=== PATIENT | male | born 1970 | race Caucasian/White ===

== ENCOUNTER 2020-09-08 14:02 | Emergency (ER) | payer OTHER, SELFPAY ==
[2020-09-08 14:05] VITALS: BP 127/68; PULSE 83; RESP 15; TEMP 36.6; O2SAT 96; BMI 38.3
--- NOTE | 2020-09-08 14:09 | RAD_ITS ---
STUDY: X-RAY - RIGHT KNEE REASON FOR EXAM: Male, 49 years old. Injury. Lost his footing while standing in a truck. TECHNIQUE: 2 view(s) of the knee. COMPARISON: None. FINDINGS: Normal visualized distal femur. Normal visualized proximal tibia and fibula. Normal proximal tibiofibular articulation. There is no acute fracture, dislocation or destructive osseous pathology. As small osteophyte at the insertion of the quadriceps tendon on the patella. Normal medial femorotibial compartment. Normal lateral femorotibial compartment. Normal patellofemoral articulation. There is no demonstrated joint effusion. The soft tissue structures are unremarkable. RAD/Knee 3 Views IMPRESSION: No acute fracture or dislocation. Electronically Signed: James Hines DO at 17:47 EDT Tel [phone], Service support ,
--- NOTE | 2020-09-08 16:48 | EDS_ITS ---
HPI History of Present Illness Chief Complaint: Lower Extremity Injury Detail of Chief Complaint: Injury to right knee Informant: patient Narrative Narrative: Patient presents to the emergency department with an injury to the right knee that occurred while at work. 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 Patient heard a pop. Patient unable to bear weight afterwards. Having a hard time moving the knee. There was no fall or direct trauma to the knee. [facility] Medical History (Updated 09/08/20 @ 18:[address] Justin Elias, ) Hyperlipidemia Home Medications atorvastatin 80 mg PO DAILY 09/08/20 [History Last Taken Unknown] hydrocodone-acetaminophen 1 tab PO Q4H PRN PRN 3 Days #20 tablet 09/08/20 [Rx Last Taken Unknown] lisinopril-hydrochlorothiazide 1 tab PO DAILY 09/08/20 [History Last Taken Unknown] quetiapine 50 mg PO DAILY 09/08/20 [History Last Taken Unknown] venlafaxine 75 mg PO DAILY 09/08/20 [History Last Taken Unknown] Allergy/AdvReac Type Severity Reaction Status Date / Time No Known Allergies Allergy Verified 09/08/20 14:04 Social History Smoking Status: Never smoker [facility] ED Constitutional Constitutional ED: Reports systems reviewed and no addt'l complaints, except as documented; Denies body ache(s), change in weight or chills Eyes Eyes: Denies acute decrease in peripheral vision, change in vision, double vision or loss of vision ENT ENT ED: Reports none; Denies ear pain, lip swelling, loss taste/smell, neck pain, otalgia or sore throat Cardiovascular Cardiovascular: Reports none; Denies abdominal pain, chest pain with activity, leg edema, lightheadedness, palpitations, rapid heart rate or syncope Respiratory/Chest Respiratory/Chest: Reports none; Denies change in mental status, dry cough, dyspnea, hemoptysis, shortness of breath at rest or shortness of breath with exertion Gastrointestinal Gastrointestinal: Reports none; Denies abdominal pain, change in stool character, diarrhea, hematemesis, hematochezia, melena, rectal bleeding or vomiting Genitourinary Genitourinary ED: Reports none; Denies abdominal discomfort, anuria, dysuria, genital pain or polyuria Musculoskeletal Musculoskeletal: Reports none and other Details: Right knee pain ; Denies arthralgias, back pain, difficulty walking, extremity pain, muscle weakness or myalgias Integumentary Reports none; Denies abscess or rash Neurologic Neurologic: Reports none; Denies abnormal gait, confusion, focal weakness, frequent falls, headache(s), loss of vision, numbness, paresthesias, radicular pain, vertigo or weakness Psychiatric Psychiatric: Reports systems reviewed and no addt'l complaints, except as do cumented and none; Denies behavioral changes, confusion, difficulty concentrating, hallucinations, suicidal ideation, tactile hallucinations or visual hallucinations Endocrine Endocrinology: Denies none, cold intolerance, excessive sweating, fatigue or heat intolerance Hematologic/Lymphatic Hematologic/Lymphatic: Reports none; Denies anemia, easy bleeding or easy bruising Allergic/Immunologic Allergic/Immunologic ED: Denies as per HPI, none, lip swelling, mouth swelling, throat swelling, tongue swelling or hives EXAM Physical Exam Const Vital Signs: 09/08/20 14:05 Temperature 97.8 F Temperature Source Temporal Pulse Rate 83 Respiratory Rate 15 Blood Pressure 127/68 H Blood Pressure Mean 87 Pulse Ox 96 Oxygen Delivery Method Room Air Positive well nourished and well developed General Appearance ED: well developed and NAD HEENT Reports TM's clear and moist mucous membranes normocephalic and atraumatic; Negative for trauma or tenderness Tympanic Membrane ED: Yes TM's clear Eyes PERRL and EOMs intact bilaterally General Eye ED: Negative for pale conjunctiva or scleral icterus Neck no lymphadenopathy, supple and no JVD General: Negative for tenderness Chest Wall inspection of chest normal and palpation of chest normal Chest: Negative for tenderness Resp normal respiratory effort and clear to auscultation bilaterally Effort and Inspection: Negative for respiratory distress or pain with movement Auscultation: Negative for rhonchi, wheezes or diminished lung sounds Cardio regular rate, regular rhythm, S1 normal heart sound, S2 normal heart sound and no murmurs Peripheral Pulses: pulses 2+ throughout GI normal to inspection, nondistended, normoactive bowel sounds, soft to palpation, non-tender, non-distended and no masses Back/Spine no CVA tenderness and no thoracic nor lumbar tenderness Extremity Extremity Narrative: Patient has limited range of motion to the right knee. He has diffuse tenderness to palpation over the lateral joint line and posteriorly. He does not tolerate ligamentous testing. Neurovascular intact distally. General Extremety ED: Negative for edema General Extremity: Negative for edema Neuro oriented x3, CN's II-XII intact bilaterally, no sensory deficits noted and gait normal Sensorium / Orientation: awake, alert, oriented to person, oriented to place and oriented to time Motor Exam: strength 5/5 throughout and strength abnormal Psych mental status grossly normal Skin no rashes or lesions noted and no wounds MDM MDM MDM Narrative Medical decision making narrative: Patient was given crutches and a knee immobilizer. He did decide to file it under Workmen's Comp. He will be given work restrictions. Patient will be referred to orthopedics for follow-up in 3 to 5 days. Radiography Diagnostic Testing: Radiology Impression Knee X-Ray 09/08/20 14:09 IMPRESSION: No acute fracture or dislocation. Electronically Signed: James Hines DO at 17:47 EDT Tel [phone], Service support , Knee obtained interpreted by myself as no acute fractures or dislocations. Radiology in agreement. Discharge Plan Triage Chief Complaint: Lower Extremity Injury ED Provider: Justin Elias Dx/Rx/DC Orders Clinical Impression: Sprain of knee Instructions: ED Meniscal Injury Knee Poss, ED Knee Sprain Prescriptions: New hydrocodone-acetaminophen [hydrocodone-acetaminophen] 1 TABLET tablet 1 tab PO Q4H PRN PRN (Reason: Pain) 3 Days Qty: 20 RF: 0 No Action atorvastatin 80 mg tablet 80 mg PO DAILY RF: 0 venlafaxine 75 mg capsule,extended release 24hr 75 mg PO DAILY RF: 0 lisinopril-hydrochlorothiazide 20-12.5 mg tablet 1 tab PO DAILY RF: 0 quetiapine 50 mg tablet extended release 24 hr 50 mg PO DAILY RF: 0 Primary Care Provider: Martha Manning Referrals: Martha Manning DO [Primary Care Provider] - Augie Sultana DO [STAFF PHYSICIAN] - 3-5 Days Disposition Disposition: Home, Self Care
[2020-09-08] MEDS: HYDROcodone Bitartrate/Apap 5/325 Tablet PO (17:31)
[2020-09-08 19:03] VITALS: BP 120/82; PULSE 78; RESP 15; O2SAT 99
== END 2020-09-08 19:04 | disposition home or self-care (01) ==
PROVIDERS: Emergency Provider Emergency Medicine
DX: S83.91XA Sprain of unspecified site of right knee, initial encounter (principal); E78.5 Hyperlipidemia, unspecified; X50.1XXA Overexertion from prolonged static or awkward postures, initial encounter; Z79.899 Other long term (current) drug therapy
CPT/HCPCS: 73562; 99285

== ENCOUNTER 2024-03-07 15:15 | Emergency (ER) | payer OTHER, SELFPAY ==
[2024-03-07 15:16] VITALS: BP 138/86; PULSE 78; RESP 18; TEMP 36.8; O2SAT 98; BMI 39.7
--- NOTE | 2024-03-07 15:41 | CT_ITS ---
STUDY: CT BRAIN WITHOUT CONTRAST REASON FOR EXAM: Male, 53 years old. trauma RADIATION DOSAGE (If Supplied By Facility): CTDIvol = ( 44.99 ) mGy, DLP = ( 863.60 ) mGycm TECHNIQUE: Transaxial CT imaging of the brain was performed without administration of intravenous contrast material. Individualized dose optimization techniques were used for this CT. COMPARISON: No relevant priors. FINDINGS: Normal soft tissue structures. Normal calvarium. Normal size ventricles and extra-axial spaces for the patient''s age. Normal white matter tracts of the cerebral hemispheres. Normal basal ganglia and thalami. Normal brainstem. Normal cerebellum. There is no intracranial hemorrhage. There are no findings of an acute ischemic infarction. Normal visualized paranasal sinuses. CT/Brain/Head without Contrast IMPRESSION: Normal unenhanced CT scan of the brain. Electronically Signed: Lionel Snow MD at 16:30 EST ,
[2024-03-07] MEDS: Lidocaine 1% (20 ml mdv) 20 ML Vial INFILT (15:43)
--- NOTE | 2024-03-07 15:56 | EX.ED.GENINJ ---
HPI History of Present Illness Chief Complaint: Head Injury Informant: patient Narrative Narrative: 53-year-old male presenting to the emergency room with head injury. Patient was at work today when he slipped on wet concrete striking the back of his head. No loss of consciousness but states that he was very dazed and had difficult time getting up. He notes his tetanus is up-to-date. No nausea vomiting. He states he is not on a blood thinner. Tetanus Immunization: <5 years PFSH PFS Medical History Hyperlipidemia Home Medications ?Medication ?Instructions ?Recorded ?Last Taken ?Type atorvastatin 80 mg tablet 80 mg PO DAILY 09/08/20 Unknown History hydrocodone-acetaminophen 5-325mg 1 tab PO Q4H PRN PRN Pain 3 days 09/08/20 Unknown Rx 5mg-325mg #20 TABLETS lisinopril 20 1 tab PO DAILY 09/08/20 Unknown History mg-hydrochlorothiazide 12.5 mg tablet quetiapine 50 mg tablet,extended 50 mg PO DAILY 09/08/20 Unknown History release 24 hr venlafaxine 75 mg capsule,extended 75 mg PO DAILY 09/08/20 Unknown History release 24 hr Allergy/AdvReac Type Severity Reaction Status Date / Time coconut Allergy Mild Hives Verified 03/07/24 15:15 Social History Smoking Status: Never smoker ROS [facility] ED Constitutional Constitutional ED: Denies chills, fever(s) or weight loss Eyes Eyes: Denies change in vision or diplopia ENT ENT ED: Denies ear pain, rhinorrhea or sore throat Cardiovascular Cardiovascular: Denies chest pain, orthopnea, palpitations or racing heartbeat Respiratory/Chest Respiratory/Chest: Denies cough, dyspnea or orthopnea Gastrointestinal Gastrointestinal: Denies abdominal pain, diarrhea, nausea or vomiting Genitourinary Genitourinary ED: Denies dysuria, hematuria or urinary frequency Musculoskeletal Musculoskeletal: Denies arthralgias, back pain or myalgias Integumentary Reports Abrasions and other Details: Scalp laceration ; Denies abscess or rash Neurologic Neurologic: Reports headache(s); Denies weakness Psychiatric Psychiatric: Denies anxiety, depression, suicidal ideation or suicidal thoughts Endocrine Endocrinology: Denies polydipsia, polyphagia or polyuria Allergic/Immunologic Allergic/Immunologic ED: Denies mouth swelling, tongue swelling or urticaria EXAM Physical Exam Const Vital Signs: 03/07/24 15:16 03/07/24 15:34 Temperature 98.2 F Temperature Source Oral Pulse Rate 78 Respiratory Rate 18 Respiratory Effort Normal Respiratory Depth Normal Respiratory Pattern Normal Blood Pressure 138/86 H Blood Pressure Mean 103 Pulse Ox 98 Oxygen Delivery Method Room Air Room Air Positive well nourished and well developed General Appearance ED: well developed and NAD HEENT Reports normocephalic and moist mucous membranes HEENT Narrative: Left occipital region is a 3 cm irregular/linear laceration that is gaping with mild venous bleeding. Just cephalad to this is a superficial area of skin abrasion measuring back to half centimeter by 2.5 cm. There is associated hematoma. No palpable bony depression. Eyes PERRL and EOMs intact bilaterally Neck no lymphadenopathy, supple and no JVD Resp normal respiratory effort and clear to auscultation bilaterally Cardio regular rate, regular rhythm and no murmurs GI normal to inspection, nondistended, normoactive bowel sounds and non-tender Palpation: soft Back/Spine no CVA tenderness and normal ROM Extremity normal to inspection General Extremety ED: Negative for edema General Extremity: Negative for edema Neuro oriented x3 and CN's II-XII intact bilaterally Sensorium / Orientation: alert Motor Exam: strength 5/5 throughout Psych mental status grossly normal Mood & Affect: Negative for depressed or tearful Skin no rashes or lesions noted and no wounds MDM MDM MDM Narrative Medical decision making narrative: Differential diagnosis includes hematoma laceration abrasion skull fracture intracranial hemorrhage concussion CT the brain was obtained which does not demonstrate any obvious skull fracture intracranial hemorrhage/hematoma. The wound was locally anesthetized using 1% lidocaine washed with Shur-Clens and explored. He was closed using a total of 6 simple interrupted 4-0 Ethilon sutures. Wound care discussed with the patient stitches to be removed in 7 days return if worsening or concerns History & Record Review Discussion w/independent historian: Patient Radiography Diagnostic Testing: Clinical Impression(s) from Imaging Studies Brain CT 03/07/24 15:41 IMPRESSION: Normal unenhanced CT scan of the brain. Electronically Signed: Lionel Snow MD at 16:30 EST , Discharge Plan Triage Chief Complaint: Head Injury ED Provider: Alfredito Tellez Dx/Rx/DC Orders Clinical Impression: Laceration of scalp, Fall, Concussion Instructions: ED Concussion, ED Laceration, All Closures Prescriptions: No Action atorvastatin 80 mg tablet 80 mg PO DAILY Patient Comments: TAKE ONE TABLET BY MOUTH EVERY DAY venlafaxine 75 mg capsule,extended release 24hr 75 mg PO DAILY Patient Comments: TAKE ONE CAPSULE BY MOUTH EVERY DAY lisinopril-hydrochlorothiazide 20-12.5 mg tablet 1 tab PO DAILY Patient Comments: TAKE ONE TABLET BY MOUTH EVERY DAY quetiapine 50 mg tablet extended release 24 hr 50 mg PO DAILY Patient Comments: TAKE ONE TABLET BY MOUTH EVERY NIGHT AT BEDTIME hydrocodone-acetaminophen [hydrocodone-acetaminophen] 1 TABLET tablet 1 tab PO Q4H PRN PRN (Reason: Pain) 3 Days Qty: 20 0RF Primary Care Provider: Martha Manning Referrals: Martha Manning, [Primary Care Provider] - [facility] [Non-Staff] - 7 Days for suture removal Print Language: Citizen Of [place]
[2024-03-07 17:15] VITALS: BP 132/74; PULSE 80; RESP 16; O2SAT 99
[2024-03-07 17:29] VITALS: BP 124/78; PULSE 64; RESP 18; TEMP 37.1; O2SAT 99
== END 2024-03-07 17:30 | disposition home or self-care (01) ==
LOC: ED 16:25
PROVIDERS: Emergency Provider Emergency Medicine; Visit Provider Emergency Medicine
DX: S01.01XA Laceration without foreign body of scalp, initial encounter (principal); S06.0X0A Concussion without loss of consciousness, initial encounter; X58.XXXA Exposure to other specified factors, initial encounter
CPT/HCPCS: 12002; 70450; 99283

== ENCOUNTER 2024-03-10 16:56 | Observation (INO) | payer OTHER, SELFPAY ==
[2024-03-10 16:57] VITALS: BP 203/184; PULSE 103; RESP 20; TEMP 37.8; O2SAT 99; BMI 40.2
--- NOTE | 2024-03-10 17:02 | ED.RN ---
This RN notified Dr. Aleman of concern for patient. She took chart and is seeing patient.
[2024-03-10 17:04] VITALS: BP 147/75; PULSE 104; RESP 24; TEMP 39.6; O2SAT 98
--- NOTE | 2024-03-10 17:12 | RAD_ITS ---
INDICATION: fever, weakness EXAMINATION/TECHNIQUE: X-RAY - XR Chest 1 View COMPARISON: None. FINDINGS: Patchy right upper lobe opacities. The heart is mildly enlarged. No pleural effusion or pneumothorax. No acute osseous abnormalities. RAD/Chest 1 View (Portable) IMPRESSION: Rightward rotation of patient limits evaluation. Despite limitations: Patchy right upper lobe opacities concerning for pneumonia. Electronically Signed: Tank Simms MD at 18:09 EST ,
--- NOTE | 2024-03-10 17:12 | EKG12_ITS ---
Test Reason : Blood Pressure : */* mmHG Vent. Rate : 103 BPM Atrial Rate : 103 BPM P-R Int : 166 ms QRS Dur : 100 ms QT Int : 326 ms P-R-T Axes : 18 -11 10 degrees QTcB Int : 427 ms Sinus tachycardia Minimal voltage criteria for LVH, may be normal variant ( R in aVL ) Possible Inferior infarct , age undetermined Abnormal ECG Confirmed by ENDER NEVAREZ, NAMRATA ([id number]), visual effects editor DAVID GALAN ([id number]) on 03/13/2024 2:25:24 PM Referred By: Confirmed By: NAMRATA HANDLEY MD
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
[2024-03-10 17:29] LABS: Absolute Lymphocyte Count 0.84 X10^3/uL (0.83-4.51); Absolute Neutrophil Count 7.1 X10^3/uL (2.0-7.7); Basophil# 0.03 X10^3/uL; Basophil% 0.3 % (0-1); Eosinophil# 0.02 X10^3/uL; Eosinophils% 0.2 % (0-5); Hematocrit 38.9 % (40-54); Hemoglobin 13.4 g/dL (13.0-16.5); Lymphocyte # 0.84 X10^3/ul (0.83-4.51); Lymphocyte % 9.6 % (19-41); Mean Corp Hgb Conc 34.4 g/dL (32-36); Mean Corpuscular Hgb 28.7 pg (27.0-32.0); Mean Corpuscular Volume 83.3 fL (80-94); Mean Platelet Vol. 9.3 fl (6.2-12.0); Monocyte# 0.67 X10^3/uL; Monocyte% 7.7 % (0-10); NRBC Flagged by Analyzer 0 % (0-5); Neutrophil # 7.14 X10^3/uL (2.7-7.7); Neutrophil % 81.7 % (47-70); Platelet Count 271 K/mm3 (150-450); RBC Distribution Width CV 11.9 % (11.6-14.6); Red Blood Count 4.67 M/mm3 (4.6-6.2); White Blood Count 8.7 K/mm3 (4.4-11.0)
--- NOTE | 2024-03-10 17:32 | CT_ITS ---
EXAMINATION : Head CT w/out contrast HISTORY : headache, recent trauma COMPARISON : None. TECHNIQUE : Multiple contiguous axial images were obtained from the skull base to the vertex without intravenous contrast. A radiation dose optimization technique was used for this scan. FINDINGS : The ventricles and sulci are normal in size. There is no evidence for acute intracranial hemorrhage, mass effect, or midline shift. There is no extra-axial fluid collection. There is normal frederick-white differentiation, without CT evidence of acute ischemia or infarct. The skull base and calvarium are unremarkable. The orbits are unremarkable. The paranasal sinuses are clear. The mastoid air cells are well-aerated. The soft tissues are unremarkable. CT/Brain/Head without Contrast IMPRESSION: No acute intracranial abnormality. Electronically Signed: Tank Simms MD at 18:03 EST ,
[2024-03-10 17:35] LABS: International Normalized Ratio 1.1; Prothrombin Time (Protime)PT. 13.8 SECONDS (11.7-14.9)
[2024-03-10 17:36] LABS: Partial Thromboplast Time 30.3 Seconds (24.1-36.2)
[2024-03-10] MEDS: 0.9% Normal Saline (1000mL) 1,000 ML 999 ML IV (17:40)
[2024-03-10] MEDS: Acetaminophen 325 MG Tablet 650 MG PO (17:40)
[2024-03-10 17:46] LABS: ALB/GLOB Ratio 0.8 RATIO (0.9-2.4); AST(SGOT) 23 U/L (15-37); Alanine Aminotransfer ALT/SGPT 35 U/L (16-61); Albumin, Serum 3.4 g/dL (3.2-5.0); Alkaline Phosphatase 120 U/L (45-117); Anion Gap 8 (5-15); BUN 12 mg/dL (7-18); BUN/Creat Ratio 11.3 RATIO (10-20); CPK Total, Creatine Kinase 160 U/L (39-308); Calcium,Total 8.8 mg/dL (8.5-10.1); Chloride 94 mmol/L (98-107); Creatinine, Serum 1.06 mg/dL (0.70-1.30); EST Glomerular Filtration Rate 77 mL/min (>60); Est Glom Filt Rate - Afr Amer 93 mL/min (>60); Globulin 4.3 g/dL (2.2-4.2); Glucose 155 mg/dL (74-106); Potassium 3.2 mmol/L (3.5-5.1); Protein, Total 7.7 g/dL (6.4-8.2); Sodium Level 130 mmol/L (136-145)
[2024-03-10 18:00] VITALS: BP 110/75; PULSE 99; RESP 28
[2024-03-10 18:07] LABS: Lactic Acid 1.6 mmol/L (0.4-1.9)
[2024-03-10] MEDS: Ceftriaxone 1 GM/50 ML BAG IV (18:54)
[2024-03-10] MEDS: Azithromycin 500 MG in 0.9% Normal Saline (250mL Bag) 250 ML 250 MG IV (18:55)
--- NOTE | 2024-03-10 18:59 | HP.PCM.HOS_ITS ---
HPI - General General Date of Service: 03/10/24 Chief Complaint: Febrile HPI Narrative GARRY TOMLIN, is a 53-year-old male history of hypertension, depression, diabetes, hyperlipidemia presented [facility] ED 03/10/2024 due to increasing weakness, confusion, fever. He had recent fall with head injury and scalp lac 3 days ago and the fall was attributed to him slipping on water, he did have a loss of consciousness at the time CT head with no acute process. Over the past 2 days he has had increased generalized weakness and fatigue and yesterday had a hard time driving which was unusual for him. Additionally has had poor p.o. intake since that time. Mild headache and a little bit of neck pain. In the ED patient febrile with temp of 103.2 and initially was significantly hypertensive but repeat blood pressure improved to 147/75 with heart rate of 104. Lab workup fairly unremarkable aside from a sodium of 130 and potassium of 3.2. CT head in ED with no acute process. Chest x-ray concerning for right upper lobe pneumonia. Given extent of patient's fever with his confusion and weakness hospitalist contacted for admission. Patient evaluated with family member at bedside. Patient reports that since the day of his fall he has noticed some intermittent sweats and chills but has not measured temperature, also has felt confused and weak. Has had some intermittent nausea shortly after the episode with the loss of consciousness, a little bit of dry heaves today as well that is resolved. Does not feel short of breath, does have occasional cough, no chest pain or abdominal pain, has a little bit of a headache that has been unchanged since his fall and does have some neck pain but more so on the left side with palpation and this is not worsened over the past several days either [facility] Medical History Hyperlipidemia Home Medications ?Medication ?Instructions ?Recorded ?Last Taken ?Type atorvastatin 80 mg tablet 80 mg PO DAILY 09/08/20 03/10/24 History lisinopril 20 1 tab PO DAILY 09/08/20 03/10/24 History mg-hydrochlorothiazide 12.5 mg tablet quetiapine 50 mg tablet,extended 50 mg PO DAILY 09/08/20 03/09/24 History release 24 hr venlafaxine 75 mg capsule,extended 75 mg PO DAILY 09/08/20 03/09/24 History release 24 hr coenzyme Q10 10 mg capsule (Co 10 mg PO DAILY 03/10/24 03/09/24 History Q-10) metformin 500 mg tablet,extended 500 mg PO DAILY 03/10/24 03/10/24 History release 24 hr multivitamin (Daily Multi-Vitamin 1 tab PO DAILY 03/10/24 03/09/24 History tablet) omega 3-dso-vob-fish oil 1,200 mg 1 cap PO DAILY 03/10/24 03/09/24 History (144 mg-216 mg) capsule (Fish Oil) vitamin E mixed 400 unit tablet 400 unit PO DAILY 03/10/24 03/09/24 History Allergy/AdvReac Type Severity Reaction Status Date / Time coconut Allergy Mild Hives Verified 03/07/24 15:15 Social History Smoking Status: Never smoker ROS ROS Narrative General: Some intermittent fevers and chills at home though did not measure temp HENT: Some headache unchanged over the past 2 days, denies stuffy nose, denies sore throat EYES: Briefly had some blurring of his vision but this is resolved Resp: Has had slight dry cough, denies shortness of breath Cardiac: Denies chest pain GI: Denies abdominal pain, denies changes in bowel, had nausea after his fall and a little bit of dry heaves earlier today : Denies changes in urination Extremity: Denies swelling MSK: Some generalized weakness Neuro: Denies any numbness/tingling Heme: Denies any bleeding or bruising Skin: Denies rashes, does have repaired lack on back of left side of head Psychiatric: No complaints voiced Vital Signs Vital Signs Vital Signs: 03/10/24 16:57 03/10/24 17:04 03/10/24 17:12 Temperature 100.1 F H 103.2 F H Temperature Source Temporal Oral Pulse Rate 103 H 104 H Respiratory Rate 20 H 24 H Blood Pressure 203/184 H 147/75 H Blood Pressure Mean 190 99 Pulse Ox 99 98 Oxygen Delivery Method Room Air Room Air Room Air 03/10/24 18:00 Temperature Temperature Source Pulse Rate 99 Respiratory Rate 28 H Blood Pressure 110/75 Blood Pressure Mean 87 Pulse Ox Oxygen Delivery Method Weight Weight: 130.816 kg Body Mass Index (BMI) 40.2 Physical Exam Narrative General: Alert, no apparent distress HEENT: Atraumatic, normocephalic Eyes: Anicteric, normal conjunctiva, extraocular movements grossly intact Neck: Supple Respiratory: Clear to auscultation bilaterally, no wheezes or rhonchi, normal respiratory effort Cardiovascular: Low-grade sinus tachycardia GI: Slightly firm but nontender, no rebound, guarding, rigidity Extremities: No edema Musculoskeletal: Moving all extremities, no pain over spine or central neck but did have some pain on the left side of his neck, able to freely move head [id number] Neuro: No overt focal neurological deficits Skin: No rashes appreciated, does have stitches noted on upper posterior portion of head Psych: Restricted affect Results Lab / Micro Data 03/10/24 17:06 03/10/24 17:06 Labs: Laboratory Results - last 24 hr 03/10/24 17:06: WBC 8.7, RBC 4.67, Hgb 13.4, Hct 38.9 L, MCV 83.3, MCH 28.7, MCHC 34.4, RDW Std Deviation 36.0, RDW Coeff of Mariposa 11.9, Plt Count 271, MPV 9.3, Immature Gran % (Auto) 0.500, Neut % (Auto) 81.7 H, Lymph % (Auto) 9.6 L, [place] % (Auto) 7.7, Eos % (Auto) 0.2, Baso % (Auto) 0.3, Absolute Neuts (auto) 7.1, Absolute Lymphs (auto) 0.84, Nucleated RBC % 0, PT 13.8, INR 1.1, APTT 30.3, Sodium 130 L, Potassium 3.2 L, Chloride 94 L, Carbon Dioxide 29.0, Anion Gap 8, BUN 12, Creatinine 1.06, Estim Creat Clear Calc 108.60, Est GFR (MDRD) Af Amer 93, Est GFR (MDRD) Non-Af 77, BUN/Creatinine Ratio 11.3, Glucose 155 H, Lactic Acid 1.6, Calcium 8.8, Total Bilirubin 1.50 H, AST 23, ALT 35, Alkaline Phosphatase 120 H, Total Creatine Kinase 160, Total Protein 7.7, Albumin 3.4, G lobulin 4.3 H, Albumin/Globulin Ratio 0.8 L Micro: Microbiology 03/10/24 17:06 Mucosa - Nose SARS-CoV-2, Influenza & RSV (PCR) - Final Imaging Radiology Impression Chest X-Ray 03/10/24 17:12 IMPRESSION: Rightward rotation of patient limits evaluation. Despite limitations: Patchy right upper lobe opacities concerning for pneumonia. Electronically Signed: Tank Simms MD at 18:09 EST , Brain CT 03/10/24 17:32 IMPRESSION: No acute intracranial abnormality. Electronically Signed: Tank Simms MD at 18:03 EST , Assessment & Plan Assessment/Plan (1) Community acquired pneumonia: PLAN: Plan #Community-acquired pneumonia -Imaging: Chest x-ray suspicious for right upper lobe pneumonia -Patient is somewhat tachypneic in the ED and has cough -DuoNebs and as needed albuterol -Sputum culture, COVID negative, respiratory panel ordered -Urine antigens -Mucinex, I/S -Rocephin and will place on doxycycline instead of azithromycin given he is on a QTc prolonging agent, Seroquel #Suspect post concussive syndrome -Patient had fall with episode of loss of consciousness several days ago -He has had some headache, nausea, concentration difficulties that started after the fall, suspect that patient had concussion and that some of the symptoms are postconcussive but given underlying infection it was unclear extent of the overlap # Hyponatremia -Sodium mildly low at 130, no baseline values available -Will hold hydrochlorothiazide repeat in a.m. -Will check urine studies #Hypertension -Patient had 1 spurious low blood pressure of 110/75 but otherwise has been hypertensive, will continue home antihypertensives #Neck pain -Patient has pain more so on left lateral neck paraspinally that is reproducible on palpation without any other focal tenderness -Tylenol and ibuprofen as needed -Lidocaine patch #Type 2 diabetes mellitus -Glucose checks and sliding scale insulin -Hold home metformin #Depression/anxiety -Continue home medications #Hypokalemia -Replace -Repeat in the AM #DVT ppx: SCDs Marya Downey MD Time spent in the patient's overall evaluation,decision-making process, review of diagnostic data, adjustment of management, discussion with other providers, nursing nursing and ancillary staff involved in patient's care documentation, 59 Minutes Charges/Coding Visit Charges Inpatient E&M: 82949 Init Hosp L2
[2024-03-10 19:00] VITALS: BP 151/81; PULSE 97; RESP 20; TEMP 37.5; O2SAT 93
[2024-03-10 19:01] VITALS: BP 151/81; PULSE 97; RESP 20; TEMP 37.5; O2SAT 93
[2024-03-10 20:44] VITALS: BMI 39.1
[2024-03-10 21:12] LABS: Osmolality, Serum 280 mOsm/KG (275-295)
[2024-03-10] MEDS: guaiFENesin 1,200 MG Tablet 1200 MG PO (21:19)
[2024-03-10] MEDS: QUEtiapine 25 MG Tablet PO (21:19)
[2024-03-10] MEDS: Potassium Chloride Oral Tablet 20 MEQ 40 MEQ PO (21:19)
[2024-03-10 22:00] VITALS: BP 126/75; PULSE 105; RESP 18; TEMP 37.3; O2SAT 96
[2024-03-11] VITALS (7 sets, daily range): BP systolic 93–151; BP diastolic 65–89; PULSE 76–104; RESP 16–20; TEMP 36.6–37.7; O2SAT 93–97
[2024-03-11 00:27] LABS: Bedside Glucose 132 mg/dL (74-106)
[2024-03-11] MEDS: Acetaminophen 325 MG Tablet 650 MG PO ×3 (01:04→21:38)
[2024-03-11 06:39] LABS: Absolute Lymphocyte Count 0.81 X10^3/uL (0.83-4.51); Absolute Neutrophil Count 5.5 X10^3/uL (2.0-7.7); Basophil# 0.03 X10^3/uL; Basophil% 0.4 % (0-1); Eosinophil# 0.09 X10^3/uL; Eosinophils% 1.3 % (0-5); Hematocrit 36.8 % (40-54); Hemoglobin 12.2 g/dL (13.0-16.5); Lymphocyte # 0.81 X10^3/ul (0.83-4.51); Lymphocyte % 11.4 % (19-41); Mean Corp Hgb Conc 33.2 g/dL (32-36); Mean Corpuscular Hgb 27.7 pg (27.0-32.0); Mean Corpuscular Volume 83.4 fL (80-94); Monocyte# 0.68 X10^3/uL; Monocyte% 9.6 % (0-10); NRBC Flagged by Analyzer 0 % (0-5); Neutrophil # 5.45 X10^3/uL (2.7-7.7); Platelet Count 226 K/mm3 (150-450); RBC Distribution Width CV 11.9 % (11.6-14.6); RBC Distribution Width SD 35.9 fl (35.1-43.9); Red Blood Count 4.41 M/mm3 (4.6-6.2); White Blood Count 7.1 K/mm3 (4.4-11.0)
[2024-03-11 06:48] LABS: Bedside Glucose 111 mg/dL (74-106)
[2024-03-11] MEDS: Ipratropium/Albuterol Sulfate 3 ML AMPUL.NEB INHALATION ×2 (06:50→19:21)
[2024-03-11 07:16] LABS: ALB/GLOB Ratio 0.7 RATIO (0.9-2.4); AST(SGOT) 25 U/L (15-37); Alanine Aminotransfer ALT/SGPT 35 U/L (16-61); Alkaline Phosphatase 99 U/L (45-117); Anion Gap 5 (5-15); BUN 12 mg/dL (7-18); BUN/Creat Ratio 13.7 RATIO (10-20); Calcium,Total 8.5 mg/dL (8.5-10.1); Chloride 101 mmol/L (98-107); Creatinine, Serum 0.87 mg/dL (0.70-1.30); EST Glomerular Filtration Rate 96 mL/min (>60); Est Glom Filt Rate - Afr Amer 117 mL/min (>60); Estimated Creatinine Clearance 134.23 ml/min; Globulin 4.1 g/dL (2.2-4.2); Glucose 125 mg/dL (74-106); Potassium 3.6 mmol/L (3.5-5.1); Protein, Total 7.1 g/dL (6.4-8.2); Sodium Level 134 mmol/L (136-145)
[2024-03-11] MEDS: Doxycycline 100 MG in 0.9% Normal Saline (250mL Bag) 250 ML 250 MG IV ×2 (10:01→21:18)
[2024-03-11] MEDS: guaiFENesin 1,200 MG Tablet 1200 MG PO ×2 (10:06→21:19)
[2024-03-11] MEDS: Lisinopril 20 MG Tablet PO (10:06)
[2024-03-11] MEDS: Atorvastatin Calcium 80 MG Tablet PO (10:06)
--- NOTE | 2024-03-11 10:33 | CASEMGMT ---
NATALY MUNOZ Assessment Face to Face with patient for initial transition planning/care coordination assessment. NATALY MUNOZ introduced self and role at [facility], pt voices understanding. Pt is A&Ox4 and is resting comfortably in bed and is calm. Care providers, pharmacy, and demographics verified. Admitting dx: NEVAEH KRAMER Strata: 2 PCP: Martha Manning Specialists: Denies Preferred Pharmacy: [facility] Insurance: [facility] Prescription Benefit: Yes LNOK: Ale (W), JOSUÉ (Son) Living Arrangements: Pt lives with his in a single story home with a basement and 3 steps to enter ADLs/IADLs: Ind Transportation: Self, DME: CPAP with no additional oxygen. Pt may qualify for home oxygen use. A verbal list of local in-network DME companies were provided to the pt at this time. Pt prefers [employer]Pt also has acces to a FWW, Cane, and BP Machine. HHC/SNF: Denies history or needs Pt?s goal: Return home Plan: Home no needs, follow for potential oxygen. Pt denies the need for HH, OP Tx, or CCN. Pt states that he feels safe returning home with his once he is medically ready and denies further questions or concerns at this time. However, PT and OT are ordered and evaluations are pending. CM to follow. Report given to B[employer]IMMER [employer]OL[employer]ER CM. Reina Roberts RN, CM
--- NOTE | 2024-03-11 10:54 | PN.HOSP_ITS ---
Reason for Visit Reason for Visit: Diagnoses Pneumonia, unspecified organism (03/10/24) Objective Data Objective Data Vital Signs: Vital Signs Temp Pulse Resp BP Pulse Ox O2 Del Method O2 Flow Rate 99.5 F H 97 20 H 151/81 H 93 Room Air 2 03/11/24 10:00 03/11/24 10:00 03/11/24 10:00 03/11/24 10:00 03/11/24 10:00 03/11/24 10:00 03/11/24 06:00 Oxygen Flow Rate (L/min) 2 Oxygen Delivery Method Room Air Weight: 288 lb 9.361 oz Body Mass Index (BMI) 39.1 Intake & Output: Intake and Output for Last 24 Hours 03/09/24 03/10/24 03/11/24 23:59 23:59 23:59 Intake Total 1305 / 1305 Balance 1305 / 1305 Lab / Micro Data 03/11/24 06:19 03/11/24 06:19 Labs: Laboratory Results - last 24 hr 03/10/24 17:06: WBC 8.7, RBC 4.67, Hgb 13.4, Hct 38.9 L, MCV 83.3, MCH 28.7, MCHC 34.4, RDW Std Deviation 36.0, RDW Coeff of Marip[place] 11.9, Plt Count 271, MPV 9.3, Immature Gran % (Auto) 0.500, Neut % (Auto) 81.7 H, Lymph % (Auto) 9.6 L, [place] % (Auto) 7.7, Eos % (Auto) 0.2, Baso % (Auto) 0.3, Absolute Neuts (auto) 7.1, Absolute Lymphs (auto) 0.84, Nucleated RBC % 0, PT 13.8, INR 1.1, APTT 30.3, Sodium 130 L, Potassium 3.2 L, Chloride 94 L, Carbon Dioxide 29.0, Anion Gap 8, BUN 12, Creatinine 1.06, Estim Creat Clear Calc 108.60, Est GFR (MDRD) Af Amer 93, Est GFR (MDRD) Non-Af 77, BUN/Creatinine Ratio 11.3, Glucose 155 H, Serum Osmolality 280, Lactic Acid 1.6, Calcium 8.8, Total Bilirubin 1.50 H, AST 23, ALT 35, Alkaline Phosphatase 120 H, Total Creatine Kinase 160, Total Protein 7.7, Albumin 3.4, Globulin 4.3 H, Albumin/Globulin Ratio 0.8 L 03/10/24 21:23: POC Glucose 132 H 03/11/24 06:19: WBC 7.1, RBC 4.41 L, Hgb 12.2 L, Hct 36.8 L, MCV 83.4, MCH 27.7, MCHC 33.2, RDW Std Deviation 35.9, RDW Coeff of [place]ip[place] 11.9, Plt Count 226, MPV 9.0, Immature Gran % (Auto) 0.300, Neut % (Auto) 77.0 H, Lymph % (Auto) 11.4 L, [place] % (Auto) 9.6, Eos % (Auto) 1.3, Baso % (Auto) 0.4, Absolute Neuts (auto) 5.5, Absolute Lymphs (auto) 0.81 L, Nucleated RBC % 0, Sodium 134 L, Potassium 3.6, Chloride 101, Carbon Dioxide 28.0, Anion Gap 5, BUN 12, Creatinine 0.87, Estim Creat Clear Calc 134.23, Est GFR (MDRD) Af Amer 117, Est GFR (MDRD) Non-Af 96, BUN/Creatinine Ratio 13.7, Glucose 125 H, Calcium 8.5, Total Bilirubin 1.20 H, AST 25, ALT 35, Alkaline Phosphatase 99, Total Protein 7.1, Albumin 3.0 L, Globulin 4.1, Albumin/Globulin Ratio 0.7 L, TSH 1.480 03/11/24 06:29: POC Glucose 111 H Micro: Microbiology 03/10/24 17:06 Mucosa - Nose SARS-CoV-2, Influenza & RSV (PCR) - Final Radiography Diagnostic Testing: Radiology Impression Chest X-Ray 03/10/24 17:12 IMPRESSION: Rightward rotation of patient limits evaluation. Despite limitations: Patchy right upper lobe opacities concerning for pneumonia. Electronically Signed: Tank Simms MD at 18:09 EST , Brain CT 03/10/24 17:32 IMPRESSION: No acute intracranial abnormality. Electronically Signed: Tank Simms MD at 18:03 EST , Rhythm Strip Rhythm Strip: Sinus Tach Rate: 103 Ectopy: None Physical Exam Narrative Seen and examined. Discussed with patient's father and mother near the bedside. Patient had head injury with serious laceration about 1 to 2 years ago. He had head concussion at that time. Recently had another head injury with laceration and concussion. Mild cough and shortness of breath on exertion. Physical exam General: Alert, Oriented x3, Cooperative HEENT: Stitched wound on the parietal scalp. PERRLA, EOMI, Normocephalic Oral: No Gingival or Mucosal Lesions/ Ulcerations Neck: Supple, No JVD, Negative Carotid Bruits Chest wall/Lungs: Air entry diminished in bilateral lung bases. No crepitation/rhonchi Cardiovascular: Regular rate, Regular Rhythm, Normal S1, Normal S2, No M/G/R Abdomen: Bowel Sounds Present, Soft, Non Tender, Non-Distended : No dysuria. No renal angle tenderness. No suprapubic tenderness. Extremities: No edema, Capillary Refill Less than 3 Seconds Skin: No rashes, No breakdown Musculoskeletal: No Tenderness to Palpation of Joints or Extremities Neurological: Cranial nerves II-XII grossly intact, DTR 2+/4. No acute focal neurological deficit. Psych/Mental Status: Normal Affect, Appropriate. Assessment & Plan Assessment/Plan (1) Community acquired pneumonia: PLAN: Plan Patient was admitted with increased confusion, generalized weakness, decreased appetite and fever, temperature 103.2 ?F in ED. Earlier he had fall and head injury on 03/07 and had stitches in ED with negative CT scan. Patient also getting off balance, Drove onto the curb and backed into some bushes #Community-acquired pneumonia: Patient is being admitted to PCU. Chest x-ray initially reviewed and shows right upper lobe consolidation suggestive of right upper lobe pneumonia. Patient had mild cough and shortness of breath in ED. -Bronchodilator as needed. Pneumonia workup including urinary antigens, respiratory panel and triple PCR for SARS-CoV-2, flu and RSV are negative -Mucinex, I/S -Rocephin and doxycycline instead of azithromycin given he is on a QTc prolonging agent, Seroquel #Suspect post concussive syndrome -Patient had fall with episode of loss of consciousness several days ago -He has had some headache, nausea, concentration difficulties that started after the fall, suspect that patient had concussion and that some of the symptoms are postconcussive but given underlying infection it was unclear extent of the overlap # Hyponatremia -Sodium mildly low at 130, no baseline values available -Repeat sodium 134 better. Urine electrolytes, sodium 48 elevated. Potassium 9.0. Chloride 97. #Hypertension -Patient had 1 spurious low blood pressure of 110/75 but otherwise has been hypertensive, continue home antihypertensives 03/11: BP 130/70, 151/81. #Neck pain -Patient has pain more so on left lateral neck paraspinally that is reproducible on palpation without any other focal tenderness -Tylenol and ibuprofen as needed -Lidocaine patch #Type 2 diabetes mellitus -Glucose checks and sliding scale insulin -Hold home metformin #Depression/anxiety -Continue home medications #Hypokalemia -Repeat K3.6. #DVT ppx: SCDs Charges/Coding Visit Charges Inpatient E&M: 99869 Subs Hosp L2
[2024-03-11] MEDS: Ceftriaxone 2 GM in 0.9% Normal Saline (50mL MB+) 50 ML IV (11:25)
[2024-03-11] MEDS: QUEtiapine 25 MG Tablet PO ×2 (11:27→21:18)
[2024-03-11] MEDS: Insulin Lispro 100 UNIT/ML INSULN.PEN SC (11:33)
[2024-03-11 12:07] LABS: Bedside Glucose 162 mg/dL (74-106)
[2024-03-11 14:21] LABS: Mucous, Urine 0 SEEN /hpf (<or=2+)
[2024-03-11 14:33] LABS: Urea Nitrogen, Urine 441 mg/dL (NO RANGE EST.); Urine Chloride 37 mmol/L (Not Establ.); Urine Sodium 48 mmol/L (Not Establ.)
[2024-03-11 14:36] LABS: Color, Urine Yellow (Yellow); Glucose, Dipstick Normal (Normal); Ketone-Dipstick Negative (Negative); Leukocyte Esterase-Dipstick Negative /ul (Negative); Nitrite-Dipstick Negative (Negative); Occult Blood-Urine Negative /ul (Negative); Protein-Dipstick 30 mg/dl (Negative); Urine Bilirubin Dipstick Negative (Negative); Urine Clarity Sl. Cloudy (Clear); Urine Urobilinogen 4 mg/dl (Normal)
[2024-03-11 14:54] LABS: Bacteria RARE /hpf (None Seen); Red Blood Cells-Urine 0-5 SEEN /hpf (0-5); White Blood Cells 0-5 SEEN /hpf (0-5)
[2024-03-11 14:55] LABS: Squamous Epithelial Cells - UA 0-5 SEEN /hpf (0-5)
[2024-03-11] MEDS: amLODIPine 5 MG Tablet PO (17:15)
[2024-03-11] MEDS: Potassium Chloride Oral Tablet 20 MEQ 40 MEQ PO (17:16)
[2024-03-11 17:17] LABS: Bedside Glucose 130 mg/dL (74-106)
[2024-03-11] MEDS: Venlafaxine XR 75 MG Capsule PO (21:19)
[2024-03-12] VITALS (8 sets, daily range): BP systolic 121–151; BP diastolic 48–84; PULSE 73–97; RESP 8–20; TEMP 36.3–36.9; O2SAT 91–100
[2024-03-12 01:43] LABS: Bedside Glucose 116 mg/dL (74-106)
[2024-03-12] MEDS: Ipratropium/Albuterol Sulfate 3 ML AMPUL.NEB INHALATION ×3 (01:55→13:15)
--- NOTE | 2024-03-12 01:58 | CPS ---
Patient placed on 2L NC HS due to not having his CPAP and low SPo2, patient did not want to use a CPAP from the hospital
[2024-03-12 06:52] LABS: Bedside Glucose 131 mg/dL (74-106)
[2024-03-12 07:07] LABS: Anion Gap 4 (5-15); BUN 11 mg/dL (7-18); BUN/Creat Ratio 13.2 RATIO (10-20); Chloride 105 mmol/L (98-107); Creatinine, Serum 0.83 mg/dL (0.70-1.30); EST Glomerular Filtration Rate 102 mL/min (>60); Est Glom Filt Rate - Afr Amer 123 mL/min (>60); Glucose 137 mg/dL (74-106); Potassium 3.9 mmol/L (3.5-5.1); Sodium Level 137 mmol/L (136-145)
[2024-03-12] MEDS: Glucerna Shake 120 ML LIQUID PO ×2 (08:53→11:41)
[2024-03-12] MEDS: Ceftriaxone 2 GM in 0.9% Normal Saline (50mL MB+) 50 ML IV (08:54)
[2024-03-12] MEDS: Potassium Chloride Oral Tablet 20 MEQ 40 MEQ PO (09:06)
[2024-03-12] MEDS: QUEtiapine 25 MG Tablet PO (09:07)
[2024-03-12] MEDS: guaiFENesin 1,200 MG Tablet 1200 MG PO (09:07)
[2024-03-12] MEDS: Lisinopril 20 MG Tablet PO (09:07)
[2024-03-12] MEDS: Atorvastatin Calcium 80 MG Tablet PO (09:07)
[2024-03-12] MEDS: amLODIPine 5 MG Tablet PO (09:08)
[2024-03-12] MEDS: Acetaminophen 325 MG Tablet 650 MG PO (10:56)
[2024-03-12] MEDS: Doxycycline 100 MG in 0.9% Normal Saline (250mL Bag) 250 ML 250 MG IV (10:57)
--- NOTE | 2024-03-12 11:18 | DCINST_ITS ---
Discharge Instructions Diet Discharge Diet: 2000 mg Sodium Diet DC O2, CPAP, BIPAP needs Home O2 Discharge instructions: No Dressing / Incision Discharge Activity: Return to Normal Activity Weight Bearing Status: Weight bearing as tolerated Dressing / Incision Call your doctor if you observe: Fever of 101 or Higher, Coldness, Increased Pain, Numbness or Tingling, Change in Color, Inability to urinate, Inability to have a bowel movement, Shortness of breath, Dizziness, Fainting spells, Swelling in the ankles, Chest pain, Prolonged hiccupping, Increased palpitations (irregular heartbeat) and Calf discomfort Follow Up Care When: IN 2 WEEKS Test Results: Test results from this visit will be discussed in further detail at your follow- up appointment, if applicable. Discharge Plan Admission Admit Date/Time: 03/10/24 18:59 Primary Reason for Your Visit: Pneumonia Attending Provider: Srinivasa Herrmann Primary Care Provider: Martha Manning Consulting Providers: Marya Downey Discharge Orders/Prescriptions Prescriptions: New amlodipine 5 mg Tablet 5 mg PO DAILY 30 Days Qty: 30 2RF guaifenesin [Mucus Relief ER] 1,200 mg Tablet Extended Release 12hr 1,200 mg PO BID 7 Days Qty: 14 0RF potassium chloride 20 mEq Tablet,Er Particles/Crystals 20 meq PO DAILYCM 30 Days Qty: 30 0RF cefdinir 300 mg capsule 300 mg PO BID 5 Days Qty: 10 0RF doxycycline hyclate 100 mg tablet 100 mg PO BID 5 Days Qty: 10 0RF Continued atorvastatin 80 mg tablet 80 mg PO DAILY Patient Comments: TAKE ONE TABLET BY MOUTH EVERY DAY venlafaxine 75 mg capsule,extended release 24hr 75 mg PO .daily HS Patient Comments: TAKE ONE CAPSULE BY MOUTH EVERY DAY lisinopril-hydrochlorothiazide 20-12.5 mg tablet 1 tab PO DAILY Patient Comments: TAKE ONE TABLET BY MOUTH EVERY DAY quetiapine 50 mg tablet extended release 24 hr 50 mg PO DAILY Patient Comments: TAKE ONE TABLET BY MOUTH EVERY NIGHT AT BEDTIME metformin 500 mg tablet extended release 24 hr 500 mg PO DAILY multivitamin [Daily Multi-Vitamin] Tablet 1 tab PO DAILY vitamin E mixed 400 unit tablet 400 unit PO DAILY omega 2-yrd-lxn-fish oil [Fish Oil] 1,200 (144-216) mg capsule 1 cap PO DAILY coenzyme Q10 [Co Q-10] 10 mg capsule 10 mg PO DAILY Referrals / Follow Up: Martha Manning DO [Primary Care Provider] - Disposition Disposition (needs filled in before D/C Order can be placed): Home, Self Care
--- NOTE | 2024-03-12 11:23 | PCM.DC.SUM ---
Providers Date of Admission: 03/10/24 Date of Discharge: 03/12/24 Primary Care Physician: Dr. Martha Manning, DO Reason For Visit: PNEUMONIA FEBRILE Diagnosis Discharge Diagnosis (1) Community acquired pneumonia: Status: Acute Code(s): J18.9 - Pneumonia, unspecified organism Plan Patient was admitted with increased confusion, generalized weakness, decreased appetite and fever, temperature 103.2 ?F in ED. Earlier he had fall and head injury on 03/07 and had stitches in ED with negative CT scan. Patient also getting off balance, Drove onto the curb and backed into some bushes #Community-acquired pneumonia: Patient is being admitted to PCU. Chest x-ray initially reviewed and shows right upper lobe consolidation suggestive of right upper lobe pneumonia. Patient had mild cough and shortness of breath in ED. -Bronchodilator as needed. Pneumonia workup including urinary antigens, respiratory panel and triple PCR for SARS-CoV-2, flu and RSV are negative -Mucinex, I/S -Rocephin and doxycycline instead of azithromycin given he is on a QTc prolonging agent, Seroquel 03/12: Prescription given for cefdinir and doxycycline for 5 more days. Home qualification oxygen test #Suspect post concussive syndrome -Patient had fall with episode of loss of consciousness several days ago -He has had some headache, nausea, concentration difficulties that started after the fall, suspect that patient had concussion and that some of the symptoms are postconcussive but given underlying infection it was unclear extent of the overlap 03/12: Advised to follow-up with PCP. # Hyponatremia -Sodium mildly low at 130, no baseline values available -Repeat sodium 134 better. Urine electrolytes, sodium 48 elevated. Potassium 9.0. Chloride 97. #Hypertension -Patient had 1 spurious low blood pressure of 110/75 but otherwise has been hypertensive, continue home antihypertensives 03/11: BP 130/70, 151/81. 03/12: Prescription given for potassium supplement for hypokalemia. #Neck pain -Patient has pain more so on left lateral neck paraspinally that is reproducible on palpation without any other focal tenderness -Tylenol and ibuprofen as needed -Lidocaine patch #Type 2 diabetes mellitus -Glucose checks and sliding scale insulin -Hold home metformin #Depression/anxiety -Continue home medications #Hypokalemia -Repeat K3.6. #DVT ppx: SCDs Discharge medication reconciliation done. Discharge follow-up instructions completed. Discharge process discussed with the patient and all questions were answered to patient's satisfaction. Follow with PCP in 1 to 2 weeks Total time spent, exact 35 minutes on discharge meds reconciliation, examination, coordination of care with nurses and ancillary staff, review of imaging and blood test and discussion with the patient on follow-up instructions. Medications at Discharge Home Medications atorvastatin 80 mg tablet 80 mg PO DAILY 09/08/20 lisinopril 20 mg-hydrochlorothiazide 12.5 mg tablet 1 tab PO DAILY 09/08/20 quetiapine 50 mg tablet,extended release 24 hr 50 mg PO DAILY 09/08/20 venlafaxine 75 mg capsule,extended release 24 hr 75 mg PO .daily HS antidepressant 09/08/20 coenzyme Q10 10 mg capsule (Co Q-10) 10 mg PO DAILY 03/10/24 metformin 500 mg tablet,extended release 24 hr 500 mg PO DAILY 03/10/24 multivitamin (Daily Multi-Vitamin tablet) 1 tab PO DAILY 03/10/24 omega [id number]-zhk-dvx-fish oil 1,200 mg (144 mg-216 mg) capsule (Fish Oil) 1 cap PO DAILY 03/10/24 vitamin E mixed 400 unit tablet 400 unit PO DAILY 03/10/24 amlodipine 5 mg tablet 5 mg PO DAILY 30 days #30 tabs 03/12/24 cefdinir 300 mg capsule 300 mg PO BID 5 days #10 caps 03/12/24 doxycycline hyclate 100 mg tablet 100 mg PO BID 5 days #10 tabs 03/12/24 guaifenesin 1,200 mg tablet, extended release 12 hr (Mucus Relief ER) 1,200 mg PO BID 7 days #14 tabs 03/12/24 potassium chloride 20 mEq tablet,extended release(part/cryst) 20 meq PO DAILYCM 30 days #30 tabs 03/12/24 Physical Exam Narrative Seen and examined. Shortness of breath and chest congestion has resolved Patient had head injury with serious laceration about 1 to 2 years ago. He had head concussion at that time. Recently had another head injury with laceration and concussion.. Cough is also better. Physical exam General: Alert, Oriented x3, Cooperative HEENT: Stitched wound on the parietal scalp. PERRLA, EOMI, Normocephalic Oral: No Gingival or Mucosal Lesions/ Ulcerations Neck: Supple, No JVD, Negative Carotid Bruits Chest wall/Lungs: Air entry diminished in bilateral lung bases. No crepitation/rhonchi Cardiovascular: Regular rate, Regular Rhythm, Normal S1, Normal S2, No M/G/R Abdomen: Bowel Sounds Present, Soft, Non Tender, Non-Distended : No dysuria. No renal angle tenderness. No suprapubic tenderness. Extremities: No edema, Capillary Refill Less than 3 Seconds Skin: No rashes, No breakdown Musculoskeletal: No Tenderness to Palpation of Joints or Extremities Neurological: Cranial nerves II-XII grossly intact, DTR 2+/4. No acute focal neurological deficit. Psych/Mental Status: Normal Affect, Appropriate. Weight / BMI Weight Weight: 288 lb 9.361 oz Body Mass Index (BMI) 39.1 ABG / Lab / Microbiology Data 03/11/24 06:19 03/12/24 06:02 Laboratory: Laboratory Results - last 24 hr 03/11/24 11:30: POC Glucose 162 H 03/11/24 14:11: Urine Color Yellow, Urine Clarity Sl. Cloudy, Urine pH 7.0, Ur Specific [place] 1.010, Urine Protein 30 H, Urine Glucose (UA) Normal, Urine Ketones Negative, Urine Occult Blood Negative, Urine Nitrite Negative, Urine Bilirubin Negative, Urine Urobilinogen 4 H, Ur Leukocyte Esterase Negative, Urine RBC 0-5 SEEN, Urine WBC 0-5 SEEN, Ur Squamous Epith Cells 0-5 SEEN, Urine Bacteria RARE, Urine Mucus 0 SEEN, Ur Random Sodium 48, Urine Potassium 9.0, Urine Chloride 37, Urine Urea Nitrogen 441 03/11/24 16:59: POC Glucose 130 H 03/11/24 21:22: POC Glucose 116 H 03/12/24 06:02: Sodium 137, Potassium 3.9, Chloride 105, Carbon Dioxide 28.0, Anion Gap 4 L, BUN 11, Creatinine 0.83, Estim Creat Clear Calc 140.70, Est GFR (MDRD) Af Amer 123, Est GFR (MDRD) Non-Af 102, BUN/Creatinine Ratio 13.2, Glucose 137 H, Calcium 9.0 03/12/24 06:34: POC Glucose 131 H Microbiology: Microbiology 03/11/24 14:11 Urine, Clean Catch Legionella Antigen - Final 03/11/24 14:11 Urine, Clean Catch Streptococcus pneumoniae Antigen (M - Final 03/11/24 06:50 Mucosa - Nasopharyngeal Respiratory Panel (PCR) - Final 03/10/24 17:06 Mucosa - Nose SARS-CoV-2, Influenza & RSV (PCR) - Final D/C Instructions Discharge Diet: 2000 mg Sodium Diet Weight Bearing Status: Weight bearing as tolerated Call your doctor if you observe: Fever of 101 or Higher, Coldness, Increased Pain, Numbness or Tingling, Change in Color, Inability to urinate, Inability to have a bowel movement, Shortness of breath, Dizziness, Fainting spells, Swelling in the ankles, Chest pain, Prolonged hiccupping, Increased palpitations (irregular heartbeat) and Calf discomfort DC O2, CPAP, BIPAP Needs Home O2 Discharge instructions: No When: IN 2 WEEKS Meaningful Use Info Meaningful Use Meaningful Use Diagnoses (Choose all that apply): None applicable Ischemic Stroke Statin Dosing Therapy Reference: STATIN DOSE THERAPY REFERENCE: * Patients > 75 years receive moderate or high dose statin therapy. * Patients 75 years or YOUNGER should receive HIGH intensity statin dose unless contraindicated. You will be required to document reason for non-treatment if statin daily dose does not meet guidelines. HIGH DOSE STATIN THERAPY DAILY Atorvastatin > than or = to 40 mg Rosuvastatin > than or = to 20 mg Amlodipine + Atorvastatin > than or = to 2.5/40 mg Ezetimibe + Simvastatin 10/80 mg Simvastatin 80mg Discharge Plan Admission Admit Date/Time: 03/10/24 18:59 Primary Reason for Your Visit: Pneumonia Attending Provider: Srinivasa Herrmann Primary Care Provider: Martha Manning Consulting Providers: Marya Downey Discharge Orders/Prescriptions Prescriptions: New amlodipine 5 mg Tablet 5 mg PO DAILY 30 Days Qty: 30 2RF guaifenesin [Mucus Relief ER] 1,200 mg Tablet Extended Release 12hr 1,200 mg PO BID 7 Days Qty: 14 0RF potassium chloride 20 mEq Tablet,Er Particles/Crystals 20 meq PO DAILYCM 30 Days Qty: 30 0RF cefdinir 300 mg capsule 300 mg PO BID 5 Days Qty: 10 0RF doxycycline hyclate 100 mg tablet 100 mg PO BID 5 Days Qty: 10 0RF Continued atorvastatin 80 mg tablet 80 mg PO DAILY Patient Comments: TAKE ONE TABLET BY MOUTH EVERY DAY venlafaxine 75 mg capsule,extended release 24hr 75 mg PO .daily HS Patient Comments: TAKE ONE CAPSULE BY MOUTH EVERY DAY lisinopril-hydrochlorothiazide 20-12.5 mg tablet 1 tab PO DAILY Patient Comments: TAKE ONE TABLET BY MOUTH EVERY DAY quetiapine 50 mg tablet extended release 24 hr 50 mg PO DAILY Patient Comments: TAKE ONE TABLET BY MOUTH EVERY NIGHT AT BEDTIME metformin 500 mg tablet extended release 24 hr 500 mg PO DAILY multivitamin [Daily Multi-Vitamin] Tablet 1 tab PO DAILY vitamin E mixed 400 unit tablet 400 unit PO DAILY omega 0-cmb-zrr-fish oil [Fish Oil] 1,200 (144-216) mg capsule 1 cap PO DAILY coenzyme Q10 [Co Q-10] 10 mg capsule 10 mg PO DAILY Referrals / Follow Up: Martha Manning DO [Primary Care Provider] - Disposition Disposition (needs filled in before D/C Order can be placed): Home, Self Care Charges/Coding Visit Charges Inpatient E&M: 98692 Disch Hosp >30min
[2024-03-12] MEDS: Insulin Lispro 100 UNIT/ML INSULN.PEN SC (11:40)
[2024-03-12 12:20] LABS: Bedside Glucose 156 mg/dL (74-106)
== END 2024-03-12 11:23 | disposition home or self-care (01) ==
LOC: ED 17:30 → PCU 03-11 07:03
PROVIDERS: Admitting Provider Internal Medicine; Emergency Provider Emergency Medicine; Visit Provider Internal Medicine
DX: J18.9 Pneumonia, unspecified organism (principal); E11.9 Type 2 diabetes mellitus without complications; E87.1 Hypo-osmolality and hyponatremia; I10 Essential (primary) hypertension; E87.6 Hypokalemia; E78.5 Hyperlipidemia, unspecified; S06.0X9D Concussion with loss of consciousness of unspecified duration, subsequent encounter; S01.01XD Laceration without foreign body of scalp, subsequent encounter; Z79.84 Long term (current) use of oral hypoglycemic drugs; M54.2 Cervicalgia; F32.A Depression, unspecified; F41.9 Anxiety disorder, unspecified; Z79.899 Other long term (current) drug therapy; W19.XXXD Unspecified fall, subsequent encounter; R94.31 Abnormal electrocardiogram [ECG] [EKG]; R00.0 Tachycardia, unspecified; R53.1 Weakness; R53.83 Other fatigue; R51.9 Headache, unspecified
CPT/HCPCS: 36415; 70450; 71045; 80048; 80053; 81001; 82436; 82550; 82962; 83605; 83930; 84133; 84300; 84443; 84540; 85025; 85610; 85730; 87040; 87086; 87449; 87631; 87633; 93005; 94640; 94668; 96361; 96365; 96366; 96367; 97161; 97802; 99221; 99252; 99284; A4216; G0378; G0463; J0696